=== PATIENT | male | born 1950 | race Two or more races ===

== ENCOUNTER 2018-08-20 21:25 | Inpatient (IN) | payer MEDICARE ==
[~2018-08-20] VITALS: Ht 177.8 cm; Wt 135.2 kg
--- NOTE | 2018-08-20 21:38 | NUR ---
[id number] FROM STREETS C/C BILATERAL LE ABBRASIONS WITH RIGHT LOWER BACK PAIN RADIATING DOWN R LEG S/P TRIP AND FALL. -HEAD TRAUMA. -KO. -DIZZINESS. STATES HE IS UNABLE TO STAND OR WALK ON LEG. DENIES SOB, DIZZINESS, WEAKNESS, N/V. NO ACUTE DISTRESS NOTED. READY FOR EVAL.
[2018-08-20 22:26] LABS: BASOPHILS # (AUTO) 0.1 /CMM (0.0-0.2); BASOPHILS % (AUTO) 0.7 % (0.0-2.0); EOSINOPHILS % (AUTO) 3.9 % (0.0-6.0); HEMATOCRIT 47 % (39-51); HEMOGLOBIN 15.9 g/dL (13.5-17.5); LYMPHOCYTES # (AUTO) 1.7 /CMM (0.8-4.8); LYMPHOCYTES % (AUTO) 20.3 % (20.0-44.0); MEAN CORPUSCULAR HGB CONC 34 g/dl (31.0-36.0); MEAN CORPUSCULAR VOLUME 97 fL (80-96); MONOCYTES # (AUTO) 0.5 /CMM (0.1-1.30); MONOCYTES % (AUTO) 6.5 % (2.0-12.0); NEUTROPHILS # (AUTO) 5.6 /CMM (1.8-8.9); NEUTROPHILS % (AUTO) 68.6 % (43.0-81.0); PLATELET COUNT (AUTO) 208 /CMM (150-450); RED BLOOD CELL COUNT(AUTO) 4.83 MIL/uL (4.5-6.0); WHITE BLOOD COUNT (AUTO) 8.2 K/uL (4.3-11.0)
[2018-08-20 22:32] LABS: CALCIUM, SERUM 8.7 mg/dL (8.5-10.1); CREATININE 1.1 mg/dL (0.6-1.3)
[2018-08-20 22:38] LABS: ALBUMIN 4.2 g/dL (3.4-5.0); BILIRUBIN,TOTAL 0.5 mg/dL (0.2-1.0); TOTAL PROTEIN, SERUM 7.5 g/dL (6.4-8.2)
[2018-08-20 22:39] LABS: POTASSIUM 4.7 mmol/L (3.5-5.1)
--- NOTE | 2018-08-20 23:11 | NUR ---
[employer] MAN AT BEDSIDE TO ASSIST WITH RESTROOM
[2018-08-20] MEDS ORDERED: IV NS 0.9% 1,000 ML BAG IV PRN (23:30)
--- NOTE | 2018-08-20 23:34 | NUR ---
REPORT GIVEN TO MARYANNE FOR 327-1
[2018-08-20 23:37] LABS: APPEARANCE,URINE Clear (CLEAR); BILIRUBIN,URINE Negative (NEGATIVE); BLOOD, URINE Trace-lysed Ery/uL (NEGATIVE); COLOR,URINE Yellow (YELLOW); KETONES,URINE Trace (NEGATIVE); LEUKOCYTE ESTERASE ,URINE Negative (NEGATIVE); NITRITE, URINE Negative (NEGATIVE); PH,URINE 5.5 (5.0-8.0); PROTEIN,URINE 30 mg/dl (NEGATIVE); UGLUCOSE Negative (NEGATIVE); UROBILINOGEN,URINE 0.2 EU/dL (0.2)
[2018-08-21] MEDS ORDERED: ONDANSETRON HCL/PF 4 MG/2 ML VIAL IVP PRN (00:30)
[2018-08-21] MEDS ORDERED: Z GUARD REMEDY 2 OZ OINT TP PRN (00:30)
[2018-08-21] MEDS ORDERED: MAG HYDROX/AL HYDROX/SIMETH 30 ML UDC PO PRN (00:30)
[2018-08-21] MEDS ORDERED: IV NS 0.9% 1,000 ML IV ONE (00:30)
[2018-08-21] MEDS ORDERED: ZOLPIDEM TARTRATE 5 MG TABLET PO PRN (00:30)
[2018-08-21] MEDS ORDERED: MAGNESIUM HYDROXIDE 30 ML UDC PO PRN (00:30)
[2018-08-21] MEDS ORDERED: ACETAMINOPHEN 325 MG TABLET PO PRN (00:30)
[2018-08-21] MEDS ORDERED: HYDROCODONE/APAP 5/325MG 1 EACH TABLET PO PRN (00:30)
[2018-08-21 00:35] LABS: BACTERIA,URINE Few /HPF (None Seen); SQUAMOUS EPITHELIAL CELL,UR Rare /HPF (None Seen); WBC,URINE 0-2 /HPF (0-3)
--- NOTE | 2018-08-21 00:49 | NUR ---
RADIOLOGY AT BEDSIDE
--- NOTE | 2018-08-21 01:00 | NUR ---
PT BROUGHT BY RADIOLOGY FOR CT
--- NOTE | 2018-08-21 01:04 | NUR ---
MS/RN NOTES RECEIVED PT. FROM ER VIA [facility]. PT. IS AWAKE, ALERT AND ORIENTED X4. BREATHING EVEN AND UNLABORED ON ROOM AIR. NO SOB, RESPIRATORY DISTRESS OR COMPLAINTS OF PAIN NOTED AT THIS TIME. ORIENTED PT. TO ROOM. PT. WITH LEFT HAND 20 GAUGE PERIPHERAL IV PRESENT, PATENT AND INTACT ADMINISTERING TO PT. IV NS INITIATED IN THE ER. PT. NOTED WITH LEFT LOWER LEG WEAKNESS. BED LOCKED AND IN LOWEST POSITION, SIDE RAILS UP X2, CALL LIGHT WITHIN REACH, WILL CONTINUE TO MONITOR.
--- NOTE | 2018-08-21 01:22 | NUR ---
PT TRANSFERRED TO [place] BED 327-1 VIA [facility]
[2018-08-21 01:41] VITALS: BP 163/77
--- NOTE | 2018-08-21 06:55 | NUR ---
MS/RN NOTES PT. IS LYING IN BED RESTING. BREATHING EVEN AND UNLABORED ON ROOM AIR. NO SOB, RESPIRATORY DISTRESS OR COMPLAINTS OF PAIN NOTED AT THIS TIME. PT. WITH LEFT HAND 20 GAUGE IV PRESENT, PATENT AND INTACT. ALL PT. NEEDS MET. BED LOCKED AND IN LOWEST POSITION, SIDE RAILS UP X2, CALL LIGHT WITHIN REACH, WILL ENDORSE TO DAYSHIFT NURSE FOR CONTINUITY OF CARE.
[2018-08-21 08:00] VITALS: BP 154/81
--- NOTE | 2018-08-21 08:12 | NUR ---
MS/RN OPENING NOTE PATIENT IN BED IN STABLE CONDITION. A/O X 4. NO SIGNS OF ACUTE DISTRESS. NO COMPLAIN OF PAIN OR DISCOMFORT. ALL NEEDS ATTENDED TO. CALL LIGHT WITHIN REACH. WILL CONTINUE TO MONITOR TO ENSURE SAFETY.
--- NOTE | 2018-08-21 11:09 | NUR ---
WOUND CARE CONSULT: PT PRESENTS WITH DRY SKIN TO LOWER LEGS AND MULTIPLE DRY ABRASIONS TO ARMS AND LEGS, PRESENT ON ADMISSION. PT IS AMBULATORY (WITH WALKER) AND CONTINENT. CURRENT SANKET SCORE IS 20.
--- NOTE | 2018-08-21 11:20 | NUR ---
MS/RN SPOKE WITH PATIENT [employer] [facility] AND GOT PATIENT'S CURRENT MEDICATION LIST.
[2018-08-21] MEDS ORDERED: MINERAL OIL/PETROLATUM,WHITE 120 GM JAR TP PRN (11:30)
[2018-08-21] MEDS ORDERED: ASPIRIN 81 MG TAB.CHEW PO SCH (11:30)
[2018-08-21] MEDS ORDERED: AMLO1CAP3 PO (12:16)
--- NOTE | 2018-08-21 12:25 | NUR ---
MS/RN PATIENT REFUSED MRI AND CT OF HEAD AND SPINE. PER PATIENT, HE DOESN'T NEED THAT. OFFERED X 3 WITH RISKS/BENEFITS EXPLAINED CONTINUE TO REFUSE. PAGED EDGE DYER ANDREW TO NOTIFY AND WILL MAKE HER AWARE. RADIOLOGY NOTIFIED.
[2018-08-21] MEDS ORDERED: BENAZEPRIL HCL 20 MG TABLET PO SCH (13:27)
[2018-08-21] MEDS ORDERED: AMLODIPINE BESYLATE 5 MG TABLET PO SCH (13:28)
--- NOTE | 2018-08-21 14:24 | NUR ---
PATIENT REFUSING MRI/ NURSE IS AWARE.
[2018-08-21 16:00] VITALS: BP 146/88
--- NOTE | 2018-08-21 18:07 | NUR ---
MS/RN PATIENT LEFT AMA, A/O X 4. NO SIGNS OF ACUTE DISTRESS. NO COMPLAIN OF PAIN OR DISCOMFORT. RISKS AND BENEFITS EXPLAINED TIMES 3 STILL WANTED TO LEAVE AMA. NOTED NEEDED ASSISTANCE WITH WALKING. WALKER PROVIDED. LEFT IN STABLE CONDITION ACCOMPANIED BY FRIEND. NAME BAND AND IV LINE REMOVED. THIAGO TORRES NOTIFIED.
[2018-08-21] MEDS ORDERED: ATORVASTATIN 40 MG TABLET PO SCH (22:00)
== END 2018-08-21 18:10 | disposition left against medical advice (07) | DRG 64 ==
LOC: ER 21:27 → MED 23:02
PROVIDERS: ADMIT Nurse Practitioner Acute Care; ATTEND Nurse Practitioner Acute Care
DX: I63.9 Cerebral infarction, unspecified (principal); N17.0 Acute kidney failure with tubular necrosis; M51.16 Intervertebral disc disorders with radiculopathy, lumbar region; I10 Essential (primary) hypertension; Z96.643 Presence of artificial hip joint, bilateral; W18.30XA Fall on same level, unspecified, initial encounter; Y92.9 Unspecified place or not applicable; E66.01 Morbid (severe) obesity due to excess calories; M48.061 Spinal stenosis, lumbar region without neurogenic claudication; F17.290 Nicotine dependence, other tobacco product, uncomplicated; Y93.9 Activity, unspecified; Y92.009 Unspecified place in unspecified non-institutional (private) residence as the place of occurrence of the external cause
CPT/HCPCS: 36415; 71045-TC; 72131-TC; 73564-TC; 80053-TC; 81000-TC; 85025-TC; G0378; J7030